=== PATIENT | female | born 1975 | race Two or more races ===

== ENCOUNTER 2024-04-08 08:00 | Day surgery (SDC) | payer MEDICAID, SELFPAY ==
--- NOTE | 2024-04-05 06:21 | EKG_ITS ---
[facility] Test Date: 2024-04-05 Pat Name: RICK HO Department: Room: - Gender: Female Strategic Buyer: RICHARD : 1975 Requested By: Dave Huang Order Number: [id number] Reading MD: Dave Huang Measurements Intervals Nicholson Rate: 54 P: 54 OK: 143 QRS: 48 QRSD: 83 T: 30 QT: 409 QTc: 389 Interpretive Statements SINUS BRADYCARDIA Compared to ECG 10/12/2022 09:27:42 No significant changes /store/S0/[id number].pdf
[2024-04-05 10:04] VITALS: BMI 34.2
[2024-04-05 11:35] LABS: Collection Type, Urine Clean Catch
[2024-04-05 11:49] LABS: Basophils # (Auto) 0.1 Thou/mm3 (0.0-0.2); Basophils % (Auto) 1 % (0-2.5); Eosinophils # (Auto) 0.1 Thou/mm3 (0.0-0.5); Eosinophils % (Auto) 2 % (0-10); Hematocrit 40.2 % (36.0-46.0); Hemoglobin 13.2 g/dL (12.0-16.0); Immature Granulocytes % (Auto) 0 % (0-0); Immature Granulocytes Auto 0.02 Thou/mm3 (0.00-0.00); Lymphocytes # (Auto) 1.6 Thou/mm3 (1.0-4.8); Lymphocytes % (Auto) 31 % (10-50); Mean Corpuscular HGB Conc 32.8 g/dl (31.0-37.0); Mean Corpuscular Hemoglobin 29.6 pg (25.0-35.0); Mean Corpuscular Volume 90 fL (80-100); Monocytes # (Auto) 0.4 Thou/mm3 (0.0-0.8); Monocytes % (Auto) 8 % (0-12); Neutrophils # (Auto) 2.8 Thou/mm3 (1.8-7.7); Neutrophils % (Auto) 57 % (37-80); Nucleated Red Blood Cell % 0 /100 WBC (0); Platelet Count 311 Thou/mm3 (140-440); RDW Standard Deviation 41.5 fL (36.4-46.3); Red Blood Count 4.46 Miln/mm3 (4.00-5.20)
[2024-04-05 11:49] LABS: Bilirubin,Urine Negative (Negative); Blood,Urine Negative (Negative); Clarity,Urine Clear (Clear/Hazy); Color,Urine Lt-Yellow (Lt Yel-Yel); Glucose, Urine Negative (Negative); Ketones,Urine Negative (Negative); Leukocyte Esterase,Urine Positive (Negative); Nitrite,Urine Negative (Negative); Protein,Urine Negative (Neg - Trace); RBC,Urine 4 /hpf (0-3); Specific Gravity,Urine 1.016 (1.001-1.035); Squamous Epithelial Cell,Urine 1 /hpf (0-5); Urobilinogen,Urine Negative mg/dL (0.0-1.0); WBC,Urine 8 /hpf (0-5)
[2024-04-05 11:52] LABS: INR 0.9 (0.9-1.3); Partial Thromboplastin Time 27.1 Seconds (22.0-36.0); Prothrombin Time 10.4 Seconds (9.0-12.2)
[2024-04-05 12:13] LABS: Alanine Aminotransferase 13 U/L (10-49); Albumin, Serum 4.9 gm/dL (3.5-5.0); Alkaline Phosphatase 98 U/L (46-116); Anion Gap 6 (7-16); Aspartate Amino Transferase 13 U/L (0-34); BUN/Creatinine Ratio 21 Ratio (12-20); Bilirubin,Total 0.4 mg/dL (0.3-1.2); Blood Urea Nitrogen 17 mg/dL (9-23); Calcium 9.6 mg/dL (8.3-10.6); Calcium (Corrected) 9.6 mg/dL (8.5-10.1); Carbon Dioxide 29.7 mMol/L (20.0-31.0); Chloride 104 mMol/L (98-107); Creatinine (Component) 0.8 mg/dL (0.6-1.3); Estimated Creatinine Clearance 88.4 mL/min (>60); Globulin 2.5 gm/dL (2.3-3.5); Glucose 92 mg/dL (74-106); Osmolality,Calculated 280 (275-295); Potassium 3.7 mMol/L (3.4-5.1); Sodium 140 mMol/L (136-145); Total Protein 7.4 gm/dL (5.7-8.2); eGFR > 60 See Note
--- NOTE | 2024-04-05 15:02 | PD.SURHP ---
HPI Date of Admission April 08, 2024 Chief Complaint Chief Complaint: Recurrent ventral incisional hernia. HPI This 49-year-old female is brought to the hospital for her for the repair of ventral incisional hernia. Patient undergo exploration and repair with implantation of a patch. Risk benefits and alternatives were discussed with the patient and informed consent is obtained. Past Medical History Past Medical History NEUROLOGIC: Negative Neurological Disorders or Seizures CARDIAC: Positive Cardiac Disorders, Hypercholesterolemia, Hypertension and Varicose Veins; Negative Congestive Heart Failure, Edema or Cellulitis RESPIRATORY: Negative Respiratory Disorders, Chronic Obstructive Pulmonary Disease (COPD), Asthma, Tuberculosis, Pulmonary Embolism or Sleep Apnea GASTROINTESTINAL: Negative Gastrointestinal Disorders, Hepatitis, Gall Bladder Disease or Obesity GENITOURINARY: Negative Genitourinary Disorders or Renal Disease REPRODUCTIVE: Positive Previous Pregnancies MUSCULOSKELETAL: Positive Musculoskeletal Disorders and Arthritis ENT: Negative History of ENT Problems ENDOCRINE: Positive Endocrine Disorders and Diabetes Mellitus Type 2 (not taking meds after gastric surgery); Negative Diabetes Mellitus Type 1 HEMATOLOGIC: Negative Blood Disorders OTHER HISTORY: Positive Chicken Pox; Negative Hospitalization, Autoimmune Disease, Shingles, Falls, Blood Transfusions, Blood Transfusion Reaction, Anesthesia Reactions, Chemotherapy, Radiation Therapy, MRSA, Measles, Mumps or Cancer Family History FAMILY HISTORY: Positive Family Cardiac Disorders and Family Surgery; Negative Family Psychiatric Problems, Family Respiratory Disorders, Family Gastrointestinal Problems, Family Genitourinary Problems, Family Endocrine Disorders, Family Reproductive Disorders, Family Musculoskeletal Disorders, Family Cancer or Family Anesthesia Reaction Surgical History SURGICAL: Positive Tonsillectomy, Adenoidectomy, Abdominal Surgery, Gastric Bypass Surgery, Hysterectomy, Tubal Ligation and Section; Negative Cardiac Surgery or Pacemaker Social History SMOKING STATUS: Never smoker Travel History EBOLA RISK: No Meds Home Medications and Allergies Home Medications ?Medication ?Instructions ?Recorded ?Confirmed ?Type estradiol 0.025 mg/24 hr 0.025 mg topical 2 X WEEKLY 04/05/24 04/05/24 History semiweekly transdermal patch losartan 25 mg tablet 25 mg PO QDAY 04/05/24 04/05/24 History Allergies Allergy/AdvReac Type Severity Reaction Status Date / Time cephalexin [From Keflex] Allergy Rash Verified 04/05/24 10:01 Exam Constitutional Constitutional: no acute distress Routine HEENT Exam Head: Present normocephalic Eye: Present EOMI and PERRL ENT: Present mucous membranes moist Routine Neck Exam Neck: Present supple and trachea midline Routine Chest/Breast/Axilla Exam Chest wall: Absent tenderness or mass Routine Respiratory Exam Respiratory: Present chest non-tender, lungs clear, normal breath sounds and no resp distress; Absent respiratory distress Routine Cardiovascular Exam Cardiovascular: Present RRR Routine Abdominal Exam Abdominal: Present soft and normoactive bowel sounds Comments: There is a supraumbilical midline incision and incisional hernia which is only partially reducible somewhat painful upon attempts to reduction. Bowel tones are normal otherwise the exam is unremarkable. Routine Extremities Exam Extremities: Present full ROM Routine Skin Exam Skin: Present intact, dry and warm Routine Neurological Exam Neurological: Present alert, oriented X3 and CN II-XII intact Routine Psychiatric Exam Psychiatric: Present normal affect and normal thought process Results Results: Laboratory Laboratory results: results reviewed Assessment & Plan Problem List (1) Incisional ventral hernia w obstruction: Status: Acute (2) Morbid obesity due to excess calories: Status: Acute Plan Exploration and repair of ventral incisional hernia with implantation of a patch. Risk benefits alternative discussed with the patient and informed consent is obtained. Quality Measures Quality Measures none
[2024-04-08] VITALS (9 sets, daily range): BP systolic 118–145; BP diastolic 70–85; PULSE 54–77; RESP 12–18; TEMP 36.1–36.4; O2SAT 95–99; BMI 34.0
--- NOTE | 2024-04-08 08:45 | CHAP ---
Patient expressed gratitude for prayer before their procedure.
--- NOTE | 2024-04-08 12:43 | ESOP_ITS ---
Date of Procedure 04/08/24 Pre Op Diagnosis Recurrent ventral incarcerated hernia Post Op Diagnosis Same. Procedure Repair of recurrent ventral incarcerated incisional hernia on April 08, 2024 Findings This patient had a ventral hernia repair done with the laparoscopic technique. She developed a recurrent hernia in this location. Upon exploration she was found to have a 6 cm hernia on the edge of the patch. This required lysis of adhesions and reduction of the omentum. The bowel was seen but was viable. Procedure Description The patient is interviewed in the preoperative area and the procedure was discussed in detail with the patient including expectation of outcomes. Explanation of the technique and complications. An informed consent was obtained. Anesthesia consent was obtained by the anesthesiologist. The hernia sites were marked on the surface. Patient is brought back to the operating room. The patient is positioned supine on the operating table and general anesthesia is administered in a satisfactory manner. The chest abdomen and thigh genitalia regions are prepped and draped in usual manner. IV antibiotics were given and a timeout procedure was carried out. Intraoperative ultrasound is carried out with 7.5 MHz linear digital ultrasound probe. The hernia defects were identified and marked on the surface to assess the extent of the procedure. Then the local anesthesia quarter percent Marcaine with epinephrine is used. Vertical incision is made around the previous incision and scar is removed. Dissection is carried out in the subcutaneous tissue to the fascia and the defect is identified. Gentle dissection is carried out and hernia sac is isolated. The sac is opened and was removed as specimen. There were significantly dense adhesions of the omentum within the hernia sac and surrounding subcutaneous tissue. The contents are reduced. Hemostasis is achieved. Dissection is carried out circumferentially from the peritoneal side to make sure there were no adhesions and bowel attached to the anterior abdominal wall. Lysis of adhesions is carried out on the peritoneal side releasing the omental adhesions circumferentially to about 10 cm around. All the hernias defects were incorporated into one defect. The defect is measured. It is about 8 cm in length and 6 cm in the width. The laps and instrument counts are obtained they are correct x2 and then Laps and instrument counts were correct ?2. This patient has lax abdominal wall and the edges are coming together so I decided to repair the defect in the fascia with 0 Ethibond [id number] stitches. In the lower part where there is a previously implanted patch I incorporated that patch in the fascial repair. Hemostasis is achieved. Operative field is thoroughly irrigated with saline solution and the subcutaneous tissues approximated with 3-0 chromic interrupted suture. The skin is approximated by 4-0 Monocryl subcuticular stitches. Steri-Strips are applied. Sterile dressing and abdominal binder is applied. Patient tolerated the procedure very well complications none. Patient is transferred to recovery room in a satisfactory condition. Anesthesia GETA Drains None. Implants None. Pathology / specimen Other (Hernia sac skin scar and suture) Estimated Blood Loss 10 Condition Stable Disposition PACU Surgeon Dave Huang MD Surgical Staff Operation Date: 04/08/24 10:30 Case Staff Anesthesiologist: Chava Giang RN First Assistant: April Murillo, JACQUELYN certified nurses' aide [employer] [place] surgical technology
--- NOTE | 2024-04-08 12:43 | SUR.PHASEI ---
pt arrived to PACU via gurney drowsy but arouses to verbal commands, breathing unlabored, dressing to abdomen clean, dry, and intact with abdominal binder in place, report from Augustin VALLADARES and Dr Giang
--- NOTE | 2024-04-08 12:57 | SUR.PHASEI ---
Report to Rupal Phelan RN
--- NOTE | 2024-04-08 12:57 | SUR.PHASEI ---
1257 Report received from Rupal Lynn RN
[2024-04-08] MEDS: ACETAMINOPHEN IVPB 1,000 MG/100 ML VIAL 250 MG IV (13:02)
[2024-04-08] MEDS: fentaNYL CIT INJ 50 mCg/ML AMP 2ML IVP (13:27)
--- NOTE | 2024-04-08 14:05 | SUR.PHASEII ---
1405 Patient meets discharge criteria from recovery, awake and alert, breathing unlabored, vital signs stable, denies pain states, I just feel sore , dressing intact with abdominal binder; no bleeding noted, patient drinking water; tolerating well, denies nausea, patient assisted with dressing into her clothing by her mother, discharge instructions given to patient and patients mother with the assistance of the telephone adon Nicole ID# [id number], patient mother signed discharge instructions. Patient given all her belongings prior to discharge, transported via wheelchair and left in a private vehicle.
== END 2024-04-08 14:05 | disposition home or self-care (01) ==
PROVIDERS: PCP Physician Assistant; Referring Provider Specialist; Visit Provider Specialist
PROC: (CPT 49521; principal; 2024-04-08 10:30)
DX: K40.31 Unilateral inguinal hernia, with obstruction, without gangrene, recurrent (principal); K66.0 Peritoneal adhesions (postprocedural) (postinfection); E11.9 Type 2 diabetes mellitus without complications; E78.00 Pure hypercholesterolemia, unspecified; I10 Essential (primary) hypertension; M19.90 Unspecified osteoarthritis, unspecified site; Z98.84 Bariatric surgery status; Z01.810 Encounter for preprocedural cardiovascular examination
CPT/HCPCS: 49521; 36415; 80053; 81001; 85025; 85610; 85730; 93005; A4217; A4649; J0131; J0694; J1100; J1580; J1885; J2250; J2405; J2704; J3010; J3490